=== PATIENT | male | born 1955 | race Caucasian/White ===

== ENCOUNTER 2022-11-08 15:15 | Inpatient (IN) | payer MEDICARE, MEDICAID ==
[2022-11-08 17:21] VITALS: BMI 23.0
[2022-11-08] MEDS ORDERED: Bisacodyl 10 MG SUPP PR PRN (18:10)
[2022-11-08] MEDS ORDERED: Bisacodyl 5 MG TAB PO PRN (18:10)
[2022-11-08] MEDS ORDERED: FLU VACC QS2022-23(65YR UP)/PF 240 MCG/0.7 ML SYRINGE IM ONE (18:45)
[2022-11-08] MEDS: Famotidine 20 MG TAB PO SCH (20:19)
[2022-11-08] MEDS: Diazepam 5 MG TAB PO SCH (20:19)
[2022-11-08] MEDS: risperiDONE 0.5 MG TAB PO SCH (20:20)
[2022-11-08] MEDS: Senokot S 8.6-50 MG TAB PO SCH (20:20)
[2022-11-08] MEDS: Baclofen 10 MG TAB PO SCH (20:21)
[2022-11-08] MEDS: Polyethylene Glycol OPTH DROP 15 ML BOT EA EYE SCH (20:21)
[2022-11-08] MEDS: Rosuvastatin 10 MG TAB PO SCH (20:21)
[2022-11-08] MEDS: Nystatin Cream 15 GM TUBE TOP SCH (20:27)
[2022-11-08] MEDS ORDERED: Cefepime 1 GM VIAL IVPB SCH (21:00)
[2022-11-08] MEDS: Cefepime 2 GM in Sodium Chloride 0.9% 100 ML IVPB SCH (22:22)
[2022-11-09 05:08] LABS: #Basophils 0.1 thou/uL (0.0-0.2); #Eosinphils 0.5 thou/uL (0.0-0.7); #Lymphocytes 2.3 thou/uL (1.20-3.40); #Monocytes 0.5 thou/uL (0.11-0.59); #Neutrophils 2.7 thou/uL (1.40-6.50); %Eosinophils 8.3 % (0.0-10.0); %Lymphocytes 37.1 % (21.0-51.0); %Monocytes 8.6 % (0.0-10.0); %Neutrophils 44.9 % (42.0-75.0); Hemoglobin 12.9 g/dL (14.0-18.0); Mean Corpuscular HGB CONC 32.9 g/dL (32.0-36.0); Mean Corpuscular Volume 94.3 fl (78.0-98.0); Mean Platelet Volume 7.2 fL (7.4-10.4); Platelet Count 161 10x3/uL (130-400); RBC Distribution Width 11.6 % (11.5-14.5); Red Blood Cell (RBC) Count 4.14 mill/uL (4.70-6.10); White Blood Cell (WBC) Count 6.1 10x3/uL (4.8-10.8)
[2022-11-09 05:10] LABS: ALT (SGPT) 48 U/L (8-55); AST (SGOT) 31 U/L (5-34); Albumin 3.4 g/dL (3.4-4.8); Alkaline Phosphatase 65 U/L (40-110); Anion Gap 11 mmol/L (10-20); BUN (Urea Nitrogen) 13 mg/dL (8.4-25.7); Bilirubin, Total 0.3 mg/dL (0.2-1.2); Calc. Creatinine Clearance 98 mL/min (70-130); Carbon Dioxide 24 mmol/L (23-31); Chloride 109 mmol/L (98-107); Estimated GFR 105; Globulin 3.4 g/dL (2.4-3.5); Glucose 96 mg/dL (80-115); Potassium 4.1 mmol/L (3.5-5.1); Protein, Total 6.8 g/dL (5.8-8.1); Sodium 140 mmol/L (136-145)
[2022-11-09] MEDS: Senokot S 8.6-50 MG TAB PO SCH ×2 (09:02→21:26)
[2022-11-09] MEDS: Baclofen 10 MG TAB PO SCH ×3 (09:02→21:29)
[2022-11-09] MEDS: Famotidine 20 MG TAB PO SCH ×2 (09:02→21:27)
[2022-11-09] MEDS: Multivitamin W/ Minerals 1 TAB PO SCH (09:02)
[2022-11-09] MEDS: risperiDONE 0.5 MG TAB PO SCH ×2 (09:03→21:27)
[2022-11-09] MEDS: GUAR GUM PO SCH ×3 (09:04→16:23)
[2022-11-09] MEDS: Nystatin Cream 15 GM TUBE TOP SCH ×2 (09:04→21:28)
[2022-11-09] MEDS: LACTOBACILLUS ACIDOPHILUS PO SCH (09:05)
[2022-11-09] MEDS: [UNRECOGNIZED DRUG - OTHER] PO SCH (09:05)
[2022-11-09] MEDS: Polyethylene Glycol OPTH DROP 15 ML BOT EA EYE SCH ×2 (09:05→21:27)
[2022-11-09] MEDS: Polyethylene Glycol 3350 17 GM Packet PO SCH (09:06)
[2022-11-09] MEDS: Cefepime 2 GM in Sodium Chloride 0.9% 100 ML IVPB SCH ×2 (10:51→21:27)
[2022-11-09] MEDS: Acetaminophen 325 MG TAB PO PRN (14:38)
[2022-11-09] MEDS: Diazepam 5 MG TAB PO SCH (21:26)
[2022-11-09] MEDS: Rosuvastatin 10 MG TAB PO SCH (21:27)
[2022-11-10] MEDS: risperiDONE 0.5 MG TAB PO SCH ×2 (09:04→21:45)
[2022-11-10] MEDS: Senokot S 8.6-50 MG TAB PO SCH ×2 (09:05→21:46)
[2022-11-10] MEDS: Polyethylene Glycol 3350 17 GM Packet PO SCH (09:05)
[2022-11-10] MEDS: Baclofen 10 MG TAB PO SCH ×3 (09:05→21:45)
[2022-11-10] MEDS: Multivitamin W/ Minerals 1 TAB PO SCH (09:05)
[2022-11-10] MEDS: Polyethylene Glycol OPTH DROP 15 ML BOT EA EYE SCH ×2 (09:06→21:46)
[2022-11-10] MEDS: [UNRECOGNIZED DRUG - OTHER] PO SCH (09:10)
[2022-11-10] MEDS: Nystatin Cream 15 GM TUBE TOP SCH ×2 (09:10→21:47)
[2022-11-10] MEDS: LACTOBACILLUS ACIDOPHILUS PO SCH (09:10)
[2022-11-10] MEDS: Famotidine 20 MG TAB PO SCH ×2 (09:11→21:44)
[2022-11-10] MEDS: GUAR GUM PO SCH ×2 (09:13→12:07)
[2022-11-10] MEDS: Cefepime 2 GM in Sodium Chloride 0.9% 100 ML IVPB SCH ×2 (09:13→21:44)
[2022-11-10] MEDS: Metamucil PACK PO SCH (17:42)
[2022-11-10] MEDS: Rosuvastatin 10 MG TAB PO SCH (21:45)
[2022-11-10] MEDS: Diazepam 5 MG TAB PO SCH (21:45)
[2022-11-11] MEDS: Senokot S 8.6-50 MG TAB PO SCH ×2 (08:40→22:30)
[2022-11-11] MEDS: Metamucil PACK PO SCH ×3 (08:40→20:01)
[2022-11-11] MEDS: Floranex 1 GM Packet PO SCH (08:40)
[2022-11-11] MEDS: Multivitamin W/ Minerals 1 TAB PO SCH (08:41)
[2022-11-11] MEDS: risperiDONE 0.5 MG TAB PO SCH ×2 (08:41→22:30)
[2022-11-11] MEDS: Polyethylene Glycol OPTH DROP 15 ML BOT EA EYE SCH ×2 (08:41→22:31)
[2022-11-11] MEDS: Baclofen 10 MG TAB PO SCH ×3 (08:41→22:38)
[2022-11-11] MEDS: Famotidine 20 MG TAB PO SCH ×2 (08:42→22:29)
[2022-11-11] MEDS: Nystatin Cream 15 GM TUBE TOP SCH ×2 (08:44→22:31)
[2022-11-11] MEDS: Cefepime 2 GM in Sodium Chloride 0.9% 100 ML IVPB SCH ×2 (10:28→22:27)
[2022-11-11] MEDS: Polyethylene Glycol 3350 17 GM Packet PO SCH (10:28)
[2022-11-11] MEDS: Acetaminophen 325 MG TAB PO PRN ×2 (22:15→22:28)
[2022-11-11] MEDS: Diazepam 5 MG TAB PO SCH (22:30)
[2022-11-11] MEDS: Rosuvastatin 10 MG TAB PO SCH (22:39)
[2022-11-11] MEDS ORDERED: Baclofen 10 MG TAB PO SCH (22:45)
[2022-11-12] MEDS: Senokot S 8.6-50 MG TAB PO SCH ×2 (09:03→22:28)
[2022-11-12] MEDS: Metamucil PACK PO SCH ×3 (09:03→17:32)
[2022-11-12] MEDS: Polyethylene Glycol 3350 17 GM Packet PO SCH (09:03)
[2022-11-12] MEDS: Floranex 1 GM Packet PO SCH (09:04)
[2022-11-12] MEDS: Multivitamin W/ Minerals 1 TAB PO SCH (09:04)
[2022-11-12] MEDS: risperiDONE 0.5 MG TAB PO SCH ×2 (09:04→22:29)
[2022-11-12] MEDS: Baclofen 10 MG TAB PO SCH ×3 (09:04→22:28)
[2022-11-12] MEDS: Polyethylene Glycol OPTH DROP 15 ML BOT EA EYE SCH ×2 (09:05→22:29)
[2022-11-12] MEDS: Cefepime 2 GM in Sodium Chloride 0.9% 100 ML IVPB SCH ×2 (09:06→22:30)
[2022-11-12] MEDS: Nystatin Cream 15 GM TUBE TOP SCH ×2 (09:18→22:28)
[2022-11-12] MEDS: Famotidine 20 MG TAB PO SCH ×2 (09:22→22:27)
[2022-11-12] MEDS: Acetaminophen 325 MG TAB PO PRN ×2 (12:34→22:26)
[2022-11-12] MEDS: Rosuvastatin 10 MG TAB PO SCH (22:27)
[2022-11-12] MEDS: Diazepam 5 MG TAB PO SCH (22:28)
[2022-11-13] MEDS: Polyethylene Glycol OPTH DROP 15 ML BOT EA EYE SCH ×2 (10:02→21:37)
[2022-11-13] MEDS: Metamucil PACK PO SCH ×3 (10:04→16:40)
[2022-11-13] MEDS: Polyethylene Glycol 3350 17 GM Packet PO SCH (10:07)
[2022-11-13] MEDS: Famotidine 20 MG TAB PO SCH ×2 (10:07→10:08)
[2022-11-13] MEDS: Senokot S 8.6-50 MG TAB PO SCH ×2 (10:08→21:36)
[2022-11-13] MEDS: Multivitamin W/ Minerals 1 TAB PO SCH (10:08)
[2022-11-13] MEDS: Baclofen 10 MG TAB PO SCH ×3 (10:08→21:37)
[2022-11-13] MEDS: Floranex 1 GM Packet PO SCH (10:09)
[2022-11-13] MEDS: Nystatin Cream 15 GM TUBE TOP SCH ×2 (10:10→21:37)
[2022-11-13] MEDS: risperiDONE 0.5 MG TAB PO SCH ×2 (10:13→21:36)
[2022-11-13] MEDS: Cefepime 2 GM in Sodium Chloride 0.9% 100 ML IVPB SCH ×2 (10:15→21:37)
[2022-11-13] MEDS: Diazepam 5 MG TAB PO SCH (21:33)
[2022-11-13] MEDS: Rosuvastatin 10 MG TAB PO SCH (21:36)
[2022-11-14] MEDS: Metamucil PACK PO SCH ×3 (07:30→17:53)
[2022-11-14] MEDS: Polyethylene Glycol 3350 17 GM Packet PO SCH (10:30)
[2022-11-14] MEDS: risperiDONE 0.5 MG TAB PO SCH ×2 (10:30→21:23)
[2022-11-14] MEDS: Floranex 1 GM Packet PO SCH (10:31)
[2022-11-14] MEDS: Multivitamin W/ Minerals 1 TAB PO SCH (10:31)
[2022-11-14] MEDS: Famotidine 20 MG TAB PO SCH ×2 (10:31→21:23)
[2022-11-14] MEDS: Baclofen 10 MG TAB PO SCH ×3 (10:31→21:22)
[2022-11-14] MEDS: Senokot S 8.6-50 MG TAB PO SCH ×2 (10:31→21:23)
[2022-11-14] MEDS: Polyethylene Glycol OPTH DROP 15 ML BOT EA EYE SCH ×2 (10:32→21:24)
[2022-11-14] MEDS: Nystatin Cream 15 GM TUBE TOP SCH ×2 (10:32→22:04)
[2022-11-14] MEDS: Cefepime 2 GM in Sodium Chloride 0.9% 100 ML IVPB SCH ×2 (10:42→21:16)
[2022-11-14] MEDS: Rosuvastatin 10 MG TAB PO SCH (21:22)
[2022-11-14] MEDS: Diazepam 5 MG TAB PO SCH (21:22)
[2022-11-15] MEDS: Famotidine 20 MG TAB PO SCH ×2 (08:43→21:13)
[2022-11-15] MEDS: Metamucil PACK PO SCH ×3 (08:43→17:10)
[2022-11-15] MEDS: Multivitamin W/ Minerals 1 TAB PO SCH (08:44)
[2022-11-15] MEDS: Nystatin Cream 15 GM TUBE TOP SCH ×2 (08:44→21:13)
[2022-11-15] MEDS: Polyethylene Glycol 3350 17 GM Packet PO SCH (08:44)
[2022-11-15] MEDS: Senokot S 8.6-50 MG TAB PO SCH ×2 (08:44→21:16)
[2022-11-15] MEDS: Baclofen 10 MG TAB PO SCH ×3 (08:44→21:14)
[2022-11-15] MEDS: risperiDONE 0.5 MG TAB PO SCH ×2 (08:44→21:14)
[2022-11-15] MEDS: Floranex 1 GM Packet PO SCH (08:44)
[2022-11-15] MEDS: Polyethylene Glycol OPTH DROP 15 ML BOT EA EYE SCH ×2 (08:45→21:13)
[2022-11-15] MEDS: Cefepime 2 GM in Sodium Chloride 0.9% 100 ML IVPB SCH (09:56)
[2022-11-15] MEDS: Rosuvastatin 10 MG TAB PO SCH (21:13)
[2022-11-15] MEDS: Diazepam 5 MG TAB PO SCH (21:14)
[2022-11-16] MEDS: Baclofen 10 MG TAB PO SCH ×3 (09:44→20:47)
[2022-11-16] MEDS: Floranex 1 GM Packet PO SCH (09:44)
[2022-11-16] MEDS: risperiDONE 0.5 MG TAB PO SCH ×2 (09:44→20:47)
[2022-11-16] MEDS: Famotidine 20 MG TAB PO SCH ×2 (09:45→20:46)
[2022-11-16] MEDS: Polyethylene Glycol 3350 17 GM Packet PO SCH (09:45)
[2022-11-16] MEDS: Senokot S 8.6-50 MG TAB PO SCH ×2 (09:45→20:46)
[2022-11-16] MEDS: Multivitamin W/ Minerals 1 TAB PO SCH (09:45)
[2022-11-16] MEDS: Nystatin Cream 15 GM TUBE TOP SCH ×2 (09:46→20:47)
[2022-11-16] MEDS: Metamucil PACK PO SCH ×3 (09:46→16:09)
[2022-11-16] MEDS: Polyethylene Glycol OPTH DROP 15 ML BOT EA EYE SCH ×2 (09:50→21:00)
[2022-11-16] MEDS: Diazepam 5 MG TAB PO SCH (20:46)
[2022-11-16] MEDS: Rosuvastatin 10 MG TAB PO SCH (20:47)
[2022-11-17 05:42] VITALS: BP 98/58; TEMP 97.9
[2022-11-17] MEDS: Acetaminophen 325 MG TAB PO PRN (08:05)
[2022-11-17] MEDS: Multivitamin W/ Minerals 1 TAB PO SCH (08:06)
[2022-11-17] MEDS: Famotidine 20 MG TAB PO SCH (08:06)
[2022-11-17] MEDS: Baclofen 10 MG TAB PO SCH (08:07)
[2022-11-17] MEDS: Polyethylene Glycol 3350 17 GM Packet PO SCH (08:07)
[2022-11-17] MEDS: risperiDONE 0.5 MG TAB PO SCH (08:07)
[2022-11-17] MEDS: Nystatin Cream 15 GM TUBE TOP SCH (08:08)
[2022-11-17] MEDS: Senokot S 8.6-50 MG TAB PO SCH (08:08)
[2022-11-17] MEDS: Metamucil PACK PO SCH (08:08)
== END 2022-11-17 09:00 | disposition home or self-care (01) | DRG 690 ==
LOC: BURMED 16:15
PROVIDERS: ADMIT Family Medicine; ATTEND Family Medicine
DX: N39.0 Urinary tract infection, site not specified (principal); F84.0 Autistic disorder; G04.1 Tropical spastic paraplegia; T83.511A Infection and inflammatory reaction due to indwelling urethral catheter, initial encounter; G80.9 Cerebral palsy, unspecified; K21.9 Gastro-esophageal reflux disease without esophagitis; E78.00 Pure hypercholesterolemia, unspecified; E78.5 Hyperlipidemia, unspecified; Z98.890 Other specified postprocedural states
CPT/HCPCS: 36416; 80053; 85025; 87086; J0692; J3490

== ENCOUNTER 2023-01-26 18:26 | Inpatient (IN) | payer MEDICARE, MEDICAID ==
[2023-01-26 22:50] VITALS: BMI 24.6
[2023-01-26] MEDS ORDERED: Nystatin Powder 15 GM BOT TOP PRN (23:36)
[2023-01-27] MEDS: Cefepime 1 GM in Sodium Chloride 0.9% 100 ML IVPB SCH ×3 (05:15→22:13)
[2023-01-27] MEDS: GUAR GUM PO SCH ×2 (08:11→15:15)
[2023-01-27] MEDS: Multivitamin W/ Minerals 1 TAB PO SCH (09:23)
[2023-01-27] MEDS: Polyethylene Glycol 3350 17 GM Packet PO SCH (09:24)
[2023-01-27] MEDS: Floranex 1 GM Packet PO SCH (09:24)
[2023-01-27] MEDS: risperiDONE 0.5 MG TAB PO SCH ×2 (09:24→21:07)
[2023-01-27] MEDS: Polyethylene Glycol OPTH DROP 15 ML BOT EA EYE SCH ×2 (09:24→21:20)
[2023-01-27] MEDS: Nitrofurantoin Monohyd/M-Cryst 100 MG CAP PO SCH ×2 (09:24→21:11)
[2023-01-27] MEDS: Baclofen 10 MG TAB PO SCH ×3 (09:24→21:07)
[2023-01-27] MEDS: Senokot S 8.6-50 MG TAB PO SCH ×2 (09:24→21:07)
[2023-01-27] MEDS: Famotidine 20 MG TAB PO SCH ×2 (09:24→21:07)
[2023-01-27] MEDS: Vancomycin HCl 750 MG in Sodium Chloride 0.9% 250 ML 250 ML IVPB SCH ×2 (09:25→21:03)
[2023-01-27] MEDS: Diazepam 5 MG TAB PO SCH (21:07)
[2023-01-27] MEDS: Rosuvastatin 10 MG TAB PO SCH (21:08)
[2023-01-28] MEDS: Cefepime 1 GM in Sodium Chloride 0.9% 100 ML IVPB SCH ×3 (05:20→21:52)
[2023-01-28] MEDS: Baclofen 10 MG TAB PO SCH ×3 (08:50→20:30)
[2023-01-28] MEDS: risperiDONE 0.5 MG TAB PO SCH ×2 (08:50→20:29)
[2023-01-28] MEDS: Senokot S 8.6-50 MG TAB PO SCH ×2 (08:50→20:30)
[2023-01-28] MEDS: Multivitamin W/ Minerals 1 TAB PO SCH (08:50)
[2023-01-28] MEDS: Floranex 1 GM Packet PO SCH (08:50)
[2023-01-28] MEDS: Polyethylene Glycol 3350 17 GM Packet PO SCH (08:50)
[2023-01-28] MEDS: Nitrofurantoin Monohyd/M-Cryst 100 MG CAP PO SCH ×2 (08:51→20:30)
[2023-01-28] MEDS: Famotidine 20 MG TAB PO SCH ×2 (08:51→20:30)
[2023-01-28] MEDS: GUAR GUM PO SCH ×3 (08:51→16:24)
[2023-01-28] MEDS: Vancomycin HCl 750 MG in Sodium Chloride 0.9% 250 ML 250 ML IVPB SCH ×2 (10:59→20:30)
[2023-01-28] MEDS: Polyethylene Glycol OPTH DROP 15 ML BOT EA EYE SCH ×2 (11:15→20:45)
[2023-01-28 20:13] LABS: Vancomycin, Trough 15.9 ug/mL
[2023-01-28] MEDS: Diazepam 5 MG TAB PO SCH (20:30)
[2023-01-28] MEDS: Rosuvastatin 10 MG TAB PO SCH (20:30)
[2023-01-29] MEDS: Cefepime 1 GM in Sodium Chloride 0.9% 100 ML IVPB SCH ×3 (05:38→22:58)
[2023-01-29] MEDS: Polyethylene Glycol OPTH DROP 15 ML BOT EA EYE SCH ×2 (09:05→21:13)
[2023-01-29] MEDS: Polyethylene Glycol 3350 17 GM Packet PO SCH (09:05)
[2023-01-29] MEDS: Vancomycin HCl 750 MG in Sodium Chloride 0.9% 250 ML 250 ML IVPB SCH ×2 (09:06→20:43)
[2023-01-29] MEDS: Floranex 1 GM Packet PO SCH (09:07)
[2023-01-29] MEDS: Senokot S 8.6-50 MG TAB PO SCH ×2 (09:09→20:44)
[2023-01-29] MEDS: Multivitamin W/ Minerals 1 TAB PO SCH (09:09)
[2023-01-29] MEDS: Famotidine 20 MG TAB PO SCH ×2 (09:09→20:43)
[2023-01-29] MEDS: Nitrofurantoin Monohyd/M-Cryst 100 MG CAP PO SCH ×2 (09:10→20:45)
[2023-01-29] MEDS: Baclofen 10 MG TAB PO SCH ×3 (09:10→20:44)
[2023-01-29] MEDS: risperiDONE 0.5 MG TAB PO SCH ×2 (09:29→20:44)
[2023-01-29] MEDS: GUAR GUM PO SCH ×3 (09:29→14:49)
[2023-01-29] MEDS: Diazepam 5 MG TAB PO SCH (20:44)
[2023-01-29] MEDS: Rosuvastatin 10 MG TAB PO SCH (20:44)
[2023-01-30] MEDS: Cefepime 1 GM in Sodium Chloride 0.9% 100 ML IVPB SCH ×3 (05:33→22:18)
[2023-01-30] MEDS: Floranex 1 GM Packet PO SCH (07:55)
[2023-01-30] MEDS: Senokot S 8.6-50 MG TAB PO SCH ×2 (07:55→20:30)
[2023-01-30] MEDS: Multivitamin W/ Minerals 1 TAB PO SCH (07:56)
[2023-01-30] MEDS: Polyethylene Glycol 3350 17 GM Packet PO SCH (07:56)
[2023-01-30] MEDS: risperiDONE 0.5 MG TAB PO SCH ×3 (07:56→20:32)
[2023-01-30] MEDS: Vancomycin HCl 750 MG in Sodium Chloride 0.9% 250 ML 250 ML IVPB SCH ×2 (07:57→20:41)
[2023-01-30] MEDS: Famotidine 20 MG TAB PO SCH ×2 (07:57→20:30)
[2023-01-30] MEDS: Nitrofurantoin Monohyd/M-Cryst 100 MG CAP PO SCH ×2 (07:57→20:30)
[2023-01-30] MEDS: GUAR GUM PO SCH ×3 (08:18→16:23)
[2023-01-30] MEDS: Polyethylene Glycol OPTH DROP 15 ML BOT EA EYE SCH ×2 (08:19→20:33)
[2023-01-30] MEDS: Baclofen 10 MG TAB PO SCH ×3 (08:19→20:30)
[2023-01-30] MEDS: Rosuvastatin 10 MG TAB PO SCH (20:30)
[2023-01-30] MEDS: Diazepam 5 MG TAB PO SCH (20:30)
[2023-01-31] MEDS: Cefepime 1 GM in Sodium Chloride 0.9% 100 ML IVPB SCH (05:22)
[2023-01-31] MEDS: GUAR GUM PO SCH ×2 (08:09→12:00)
[2023-01-31] MEDS: Multivitamin W/ Minerals 1 TAB PO SCH (08:37)
[2023-01-31] MEDS: Polyethylene Glycol 3350 17 GM Packet PO SCH (08:37)
[2023-01-31] MEDS: Vancomycin HCl 750 MG in Sodium Chloride 0.9% 250 ML 250 ML IVPB SCH (08:37)
[2023-01-31] MEDS: Floranex 1 GM Packet PO SCH (08:37)
[2023-01-31] MEDS: Famotidine 20 MG TAB PO SCH ×2 (08:38→20:33)
[2023-01-31] MEDS: Senokot S 8.6-50 MG TAB PO SCH ×2 (08:38→20:33)
[2023-01-31] MEDS: risperiDONE 0.5 MG TAB PO SCH ×2 (08:38→20:30)
[2023-01-31] MEDS: Baclofen 10 MG TAB PO SCH ×3 (08:38→20:33)
[2023-01-31] MEDS: Nitrofurantoin Monohyd/M-Cryst 100 MG CAP PO SCH ×2 (08:39→20:32)
[2023-01-31] MEDS: Polyethylene Glycol OPTH DROP 15 ML BOT EA EYE SCH ×2 (08:39→20:54)
[2023-01-31] MEDS: Rosuvastatin 10 MG TAB PO SCH (20:32)
[2023-01-31] MEDS: Diazepam 5 MG TAB PO SCH (20:33)
[2023-02-01 06:12] VITALS: TEMP 98.5
[2023-02-01] MEDS: Polyethylene Glycol 3350 17 GM Packet PO SCH (08:36)
[2023-02-01] MEDS: Senokot S 8.6-50 MG TAB PO SCH ×2 (08:36→20:36)
[2023-02-01] MEDS: Nitrofurantoin Monohyd/M-Cryst 100 MG CAP PO SCH ×2 (08:37→20:36)
[2023-02-01] MEDS: Famotidine 20 MG TAB PO SCH ×2 (08:37→20:36)
[2023-02-01] MEDS: Multivitamin W/ Minerals 1 TAB PO SCH (08:37)
[2023-02-01] MEDS: Floranex 1 GM Packet PO SCH (08:38)
[2023-02-01] MEDS: Baclofen 10 MG TAB PO SCH ×3 (08:38→20:36)
[2023-02-01] MEDS: risperiDONE 0.5 MG TAB PO SCH ×2 (08:38→20:36)
[2023-02-01] MEDS: Polyethylene Glycol OPTH DROP 15 ML BOT EA EYE SCH ×2 (08:45→20:36)
[2023-02-01] MEDS: Rosuvastatin 10 MG TAB PO SCH (20:35)
[2023-02-01] MEDS: Diazepam 5 MG TAB PO SCH (20:36)
[2023-02-01] MEDS ORDERED: Fleet Saline Enema 133 ML BOT PR SCH (22:45)
[2023-02-02 05:51] VITALS: BP 124/75
[2023-02-02] MEDS: Famotidine 20 MG TAB PO SCH (08:37)
[2023-02-02] MEDS: Baclofen 10 MG TAB PO SCH (08:37)
[2023-02-02] MEDS: Multivitamin W/ Minerals 1 TAB PO SCH (08:37)
[2023-02-02] MEDS: Polyethylene Glycol 3350 17 GM Packet PO SCH (08:37)
[2023-02-02] MEDS: Senokot S 8.6-50 MG TAB PO SCH (08:37)
[2023-02-02] MEDS: risperiDONE 0.5 MG TAB PO SCH (08:37)
[2023-02-02] MEDS: Nitrofurantoin Monohyd/M-Cryst 100 MG CAP PO SCH (08:37)
[2023-02-02] MEDS: Floranex 1 GM Packet PO SCH (08:37)
[2023-02-02] MEDS: Polyethylene Glycol OPTH DROP 15 ML BOT EA EYE SCH (08:38)
== END 2023-02-02 11:15 | DRG 871 ==
LOC: BURMED 21:35
PROVIDERS: ADMIT Family Medicine; ATTEND Family Medicine
DX: A41.9 Sepsis, unspecified organism (principal); G80.0 Spastic quadriplegic cerebral palsy; N39.0 Urinary tract infection, site not specified; F84.0 Autistic disorder; R65.20 Severe sepsis without septic shock; G80.9 Cerebral palsy, unspecified; N31.9 Neuromuscular dysfunction of bladder, unspecified; K21.9 Gastro-esophageal reflux disease without esophagitis; E78.5 Hyperlipidemia, unspecified; G47.00 Insomnia, unspecified; Z98.890 Other specified postprocedural states; Z83.3 Family history of diabetes mellitus; Z74.01 Bed confinement status; Z79.899 Other long term (current) drug therapy
CPT/HCPCS: 36415; 80202; J0692; J3370; J3490; J7050